=== PATIENT | male | born 1995 | race Caucasian/White ===

== ENCOUNTER 2016-11-11 01:47 | Emergency (ER) | payer OTHER ==
[~2016-11-11] VITALS: Ht 180.3 cm; Wt 81.6 kg
[2016-11-11 01:50] VITALS: BP_SYST 148
[2016-11-11 02:00] VITALS: BP_SYST 148
== END 2016-11-11 02:00 ==
LOC: SED 01:47
DX: Z02.89 Encounter for other administrative examinations (principal)